=== PATIENT | female | born 1960 | race Caucasian/White ===

== ENCOUNTER 2018-04-05 13:57 | Emergency (ER) | payer BC ==
[~2018-04-05] VITALS: Ht 157.5 cm; Wt 106.8 kg
[~2018-04-05 13:57] MED LIST: FURO-93 PO; LEVO25TA2 PO; METF10002 PO; POTA10TA PO; SULF1TAB23 PO
[2018-04-05 14:43] LABS: BASOPHILS # (AUTO) 0.07 x10^3/uL (0-0.1); BASOPHILS % (AUTO) 1 % (0-1); EOSINOPHILS # (AUTO) 0.25 x10^3/uL (0-0.4); EOSINOPHILS % (AUTO) 3 % (1-7); LYMPHOCYTES # (AUTO) 4.17 x10^3/uL (1-3.4); LYMPHOCYTES % (AUTO) 45 % (22-44); MD NO; MEAN CORPUSCULAR HEMOGLOBIN 30.3 pg (27.0-34.8); MEAN CORPUSCULAR HGB CONC 33.7 g/dL (32.4-35.8); MEAN CORPUSCULAR VOLUME 89.9 fL (80-100); MEAN PLATELET VOLUME 7.5 fL (7.4-10.4); MONOCYTES # (AUTO) 0.45 x10^3/uL (0.2-0.8); MONOCYTES % (AUTO) 5 % (2-9); NEUTROPHILS # (AUTO) 4.33 x10^3/uL (1.8-6.8); NEUTROPHILS % (AUTO) 47 % (42-75); PLATELET COUNT 357 x10^3/uL (130-400); RED BLOOD COUNT 4.66 x10^6/uL (3.82-5.3); RED CELL DISTRIBUTION WIDTH 15.4 % (9.6-15.2)
[2018-04-05 14:44] LABS: INTERNATIONAL NORMALIZED RATIO 0.97 (0.93-1.1); PROTHROMBIN TIME 10.3 Seconds (9.6-11.5)
[2018-04-05 14:45] LABS: ALBUMIN 4.1 g/dL (3.4-5.0); ANION GAP 8 mmol/L (5-15); CALCIUM 9.1 mg/dL (8.5-10.1); CHLORIDE 111 mmol/L (98-107)
[2018-04-05 14:49] LABS: ALANINE AMINOTRANSFERASE 78 U/L (12-78); ALKALINE PHOSPHATASE 121 U/L (45-117); BILIRUBIN,TOTAL 0.4 mg/dL (0.2-1.0); CREATININE 1.33 mg/dL (0.55-1.02); TOTAL PROTEIN 8.2 g/dL (6.4-8.2)
[2018-04-05 15:48] VITALS: BP 128/77
[2018-04-05] MEDS ORDERED: OMNIPAQUE 350 MG/ML, 100ML BOTTLE ONE (15:52)
[2018-04-05 16:07] LABS: TROPONIN I < 0.015 ng/mL (0.000-0.045)
== END 2018-04-05 17:11 | disposition home or self-care (01) ==
LOC: ED 16:53
DX: K21.0 Gastro-esophageal reflux disease with esophagitis (principal); R06.00 Dyspnea, unspecified; G89.29 Other chronic pain; I10 Essential (primary) hypertension; E11.40 Type 2 diabetes mellitus with diabetic neuropathy, unspecified; F17.200 Nicotine dependence, unspecified, uncomplicated; E66.9 Obesity, unspecified
CPT/HCPCS: 36415; 71275; 80053; 83880; 84484; 85025; 85610; 85730; 93005; 93970; 99284; Q9967

== ENCOUNTER 2019-11-02 20:05 | Emergency (ER) | payer BC ==
[~2019-11-02] VITALS: Ht 157.5 cm; Wt 99.4 kg
--- NOTE | 2019-11-02 20:24 | NUR ---
PT CAME IN [place] LEFT ANKLE SWELLING AND PAIN. PT STATES "THIS HAS HAPPENED BEFORE AND THEY DONT KNOW WHAT IT IS". ANKLE IS WARM TO THE TOUCH WITH A REDDNED AREA. PT IS CONNECTED TO MONITORING EQUIPMENT AND WAS WHEELCHAIRED INTO THE ROOM. WARM BLANKET PROVIDED.
[2019-11-02 20:56] VITALS: BP 120/81
--- NOTE | 2019-11-02 20:57 | NUR ---
PT IS RESTING IN [facility]. VSS. AWAITING US
[2019-11-02 21:08] LABS: BASOPHILS # (AUTO) 0.13 x10^3/uL (0-0.1); BASOPHILS % (AUTO) 1 % (0-1); EOSINOPHILS # (AUTO) 0.09 x10^3/uL (0-0.4); EOSINOPHILS % (AUTO) 1 % (1-7); LYMPHOCYTES # (AUTO) 2.41 x10^3/uL (1-3.4); LYMPHOCYTES % (AUTO) 23 % (22-44); MD NO; MEAN CORPUSCULAR HEMOGLOBIN 29.5 pg (27.0-34.8); MEAN CORPUSCULAR HGB CONC 33.3 g/dL (32.4-35.8); MEAN CORPUSCULAR VOLUME 88.7 fL (80-100); MEAN PLATELET VOLUME 8.3 fL (7.4-10.4); MONOCYTES # (AUTO) 0.79 x10^3/uL (0.2-0.8); MONOCYTES % (AUTO) 8 % (2-9); NEUTROPHILS % (AUTO) 67 % (42-75); PLATELET COUNT 300 x10^3/uL (130-400); RED BLOOD COUNT 4.21 x10^6/uL (3.82-5.3); RED CELL DISTRIBUTION WIDTH 14.2 % (9.6-15.2)
[2019-11-02 21:10] LABS: ALBUMIN 3.1 g/dL (3.4-5.0); ANION GAP 5 mmol/L (5-15); CALCIUM 8.4 mg/dL (8.5-10.1); CHLORIDE 103 mmol/L (98-107); CREATININE 1.23 mg/dL (0.55-1.02)
--- NOTE | 2019-11-02 21:16 | NUR ---
REPORT RECEIVED FROM BARRERA PASCUAL. PLAN OF CARE DISCUSSED
[2019-11-02] MEDS ORDERED: OXYcodone/APAP 5/325MG TABLET ONE (21:21)
[2019-11-02] MEDS ORDERED: OXYcodone/APAP 5/325MG TABLET PO ONE (23:00)
== END 2019-11-02 23:05 | disposition home or self-care (01) ==
LOC: ED 20:35
DX: M10.072 Idiopathic gout, left ankle and foot (principal); I10 Essential (primary) hypertension; E11.9 Type 2 diabetes mellitus without complications; F17.200 Nicotine dependence, unspecified, uncomplicated
CPT/HCPCS: 36415; 80048; 82040; 84550; 85025; 99285

== ENCOUNTER 2020-01-26 03:13 | Emergency (ER) | payer BC ==
[~2020-01-26] VITALS: Ht 157.5 cm; Wt 103.7 kg
[2020-01-26 03:22] VITALS: BP 114/68
--- NOTE | 2020-01-26 03:56 | NUR ---
A5o x4, tearful/anxious, answering questions appropriately. States swelling to all extremities x 10+ years, worsening swelling to R first/second fingers x 6 weeks. Pt states, "I have erosion in my fingers. It's too painful and I can't take it anymore." (+) CSM, (+) radial pulses, (+) DP pulses. Denies numbness/tingling. Denies fever/chills. Denies chest pain/SOB. Ambulating independently, steady gait
[2020-01-26] MEDS ORDERED: HYDROcodone/APAP 5/325 TABLET PO ONE (04:00)
[2020-01-26] MEDS ORDERED: IBUPROFEN 600 MG TABLET ONE (04:00)
[2020-01-26] MEDS ORDERED: IBUPROFEN 600 MG TABLET PO ONE (04:00)
[2020-01-26] MEDS ORDERED: HYDROcodone/APAP 5/325 TABLET ONE (04:00)
--- NOTE | 2020-01-26 04:08 | NUR ---
D/c and f/u care discussed with pt. Encouraged pt to f/u with PCP. Pt states she has appt soon with arthritis specialist and will call PCP this week. Teaching provided r/t script, verbalizes understanding. Pt states her friend is picking her up from ED entrance. Ambulating independently, steady gait. Refuses DC VS. No IV in place
== END 2020-01-26 04:12 | disposition home or self-care (01) ==
LOC: ED 04:00
DX: M1A.0420 Idiopathic chronic gout, left hand, without tophus (tophi) (principal); M1A.0410 Idiopathic chronic gout, right hand, without tophus (tophi); M25.571 Pain in right ankle and joints of right foot; M25.572 Pain in left ankle and joints of left foot; E11.9 Type 2 diabetes mellitus without complications; M19.90 Unspecified osteoarthritis, unspecified site; I10 Essential (primary) hypertension; F17.210 Nicotine dependence, cigarettes, uncomplicated
CPT/HCPCS: 99283; 99406

== ENCOUNTER 2020-06-17 07:23 | Emergency (ER) | payer BC, MEDICAID ==
[~2020-06-17] VITALS: Ht 157.5 cm; Wt 106.7 kg
--- NOTE | 2020-06-17 07:37 | NUR ---
PT BIB EMS FOR RIGHT ANKLE AND FOOT PAIN. PER EMS PT STATES THIS HAS BEEN OCCURING FOR YEARS AND HAS NOT BEEN SUCCESSFULY DX. PT REC'VD 7 MG MORPHINE VIA EMS ESTABLISHED 22 GA IV IN LEFT HAND. RIGHT FOOT PAINFUL TO TOUCH, 11/06. LIGHT SWELLING IN RIGHT FOOT
[2020-06-17] MEDS ORDERED: THIAMINE 100MG TABLET PO ONE (08:00)
[2020-06-17] MEDS ORDERED: PROMETHAZINE 25 MG/ML, 1ML IM ONE (08:00)
--- NOTE | 2020-06-17 08:03 | NUR ---
PT OFF THE FLOOR TO XRAY
--- NOTE | 2020-06-17 08:11 | NUR ---
PT BACK IN ROOM
[2020-06-17] MEDS ORDERED: KETOROLAC 30 MG/1 ML IM ONE (10:00)
[2020-06-17] MEDS ORDERED: OXYcodone/APAP 7.5/325MG TABLET PO ONE (10:00)
[2020-06-17] MEDS ORDERED: KETOROLAC 30 MG/1 ML ONE (10:04)
[2020-06-17] MEDS ORDERED: OXYcodone/APAP 7.5/325MG TABLET ONE (10:04)
[2020-06-17 10:26] VITALS: BP 117/80
--- NOTE | 2020-06-17 10:31 | NUR ---
PT REC'VD DISCHARGE INSTRUCTIONS AND EDUCATION. PT HAD NO FURTHER QUESTIONS. PT PLACED IN WHEELCHAIR AND TAKEN TO DC AREA.
== END 2020-06-17 10:35 | disposition home or self-care (01) ==
LOC: ED 08:14
DX: M19.071 Primary osteoarthritis, right ankle and foot (principal); M25.571 Pain in right ankle and joints of right foot; I10 Essential (primary) hypertension; E11.9 Type 2 diabetes mellitus without complications; E66.9 Obesity, unspecified; F17.210 Nicotine dependence, cigarettes, uncomplicated
CPT/HCPCS: 73610; 73630; 82962; 96372; 99285; J1885

== ENCOUNTER 2020-08-26 08:16 | Emergency (ER) | payer MEDICAID ==
[~2020-08-26] VITALS: Ht 157.5 cm; Wt 103.7 kg
[2020-08-26 08:17] VITALS: BP 175/84
--- NOTE | 2020-08-26 08:25 | NUR ---
PATIENT WALKED BACK FROM TRIAGE WITH CHIEF C/O RIGHT ANKLE/FOOT PAIN X3 WEEKS. PATIENT STATES SHE HAS OSTEOARTHRITIS, AND UNABLE TO TOLERATE PAIN. PATIENT UNABLE TO BEAR WEIGHT ON RIGHT LEG. PATIENT HAS APPT WITH PCP IN SEPTEMBER. ERPA AT BEDSIDE FOR EVALAUTION, SANTI, ACCOMPANIED BY FAMILY MEMBER, CALL LIGHT WITHIN REACH.
[2020-08-26] MEDS ORDERED: HYDROcodone/APAP 5/325 TABLET ONE (08:50)
[2020-08-26] MEDS ORDERED: HYDROcodone/APAP 5/325 TABLET PO ONE (09:00)
--- NOTE | 2020-08-26 10:06 | NUR ---
Rocker shoe applied. Patient given discharge instructions and prescription and they have confirmed that they understand the instructions. Patient wheeled from ED by significant other to private vehicle.
== END 2020-08-26 10:07 | disposition home or self-care (01) ==
LOC: ED 08:26
DX: M25.571 Pain in right ankle and joints of right foot (principal); M79.89 Other specified soft tissue disorders; M19.90 Unspecified osteoarthritis, unspecified site; E11.9 Type 2 diabetes mellitus without complications; F17.210 Nicotine dependence, cigarettes, uncomplicated; Z79.899 Other long term (current) drug therapy
CPT/HCPCS: 99284

== ENCOUNTER 2020-10-12 07:03 | Emergency (ER) | payer MEDICAID ==
[~2020-10-12] VITALS: Ht 157.5 cm; Wt 90.9 kg
[2020-10-12] MEDS ORDERED: KETOROLAC 60 MG/2 ML IM ONE (07:30)
--- NOTE | 2020-10-12 07:31 | NUR ---
PT STATES HAS ACUTE OSTEOARTHRITIS IN THE RIGHT LEG/ANKLE. WAS DIAGNOSED EARLIER THIS YEAR. PT STATES "THAT SHE HAS HAD PROBLEMS IN THE RIGHT LEG "FOR YEARS" IT HAS GOT BAD THE LAST COUPLE OF DAYS THAT I CAN'T WALK ON IT." RIGHT ANKLE FOOT IS TENDER TO THE TOUCH HAS PEDAL PULSES THAT IS SLIGHT STRONGER ON THE L SIDE WITH CAPILARY REFILL LESS THAN 3 SECONDS. VSS, BED RAILS UP X2 CALL REMOTE [facility] REACH.
[2020-10-12] MEDS ORDERED: KETOROLAC 60 MG/2 ML ONE (07:45)
--- NOTE | 2020-10-12 07:53 | NUR ---
PROVIDER AT BEDSIDE TO EVALUATE PATIENT. AWAITING NEW ORDERS.
[2020-10-12 08:34] VITALS: BP 121/76
--- NOTE | 2020-10-12 08:49 | NUR ---
PT UP TO BATHROOM WITH WHEELCHAIR AND BACK. WANTS MORE PAIN MEDS
[2020-10-12] MEDS ORDERED: OXYcodone/APAP 5/325MG TABLET PO ONE (09:00)
[2020-10-12] MEDS ORDERED: OXYcodone/APAP 5/325MG TABLET ONE (09:01)
--- NOTE | 2020-10-12 10:24 | NUR ---
Patient given discharge instructions and they have confirmed that they understand the instructions. Patient wheeled to discharge desk in chair. No quesitons at time of discharge.
== END 2020-10-12 10:26 | disposition home or self-care (01) ==
LOC: ED 07:25
DX: M19.071 Primary osteoarthritis, right ankle and foot (principal); M19.90 Unspecified osteoarthritis, unspecified site; E11.9 Type 2 diabetes mellitus without complications; I10 Essential (primary) hypertension; F17.200 Nicotine dependence, unspecified, uncomplicated; E66.01 Morbid (severe) obesity due to excess calories; Z68.36 Body mass index [BMI] 36.0-36.9, adult
CPT/HCPCS: 96372; 99283; J1885